=== PATIENT | female | born 1950 | race Two or more races ===

== ENCOUNTER → 2021-06-12 | Outpatient (CLI) | payer OTHER ==
--- NOTE | 2021-06-12 14:57 | KCIC ---
EXAM: Chest, single view. HISTORY: Tuberculosis follow-up. COMPARISON: None. FINDINGS: A frontal view of the chest obtained. There is mild diffuse increased interstitial opacity. There is no consolidation, pleural effusion or pneumothorax. The heart is normal in size. IMPRESSION: Mild diffuse increased interstitial opacity due to interstitial infiltrate or chronic int erstitial changes. The imaging appearance does not favor pulmonary tuberculosis. Electronically signed by: Vy Olivas MD (06/12/2021 2:54 PM) [id number]
== END ==
LOC: KCIC 14:15
PROVIDERS: ATTEND Internal Medicine Pulmonary Disease
DX: A15.9 Respiratory tuberculosis unspecified (principal)
CPT/HCPCS: 71045